=== PATIENT | male | born 2000 | race Caucasian/White ===

== ENCOUNTER → 2018-09-14 | Outpatient (CLI) | payer OTHER ==
--- NOTE | 2018-09-14 22:42 | MR ---
EXAMINATION TYPE: MR knee LT wo con DATE OF EXAM: 09/14/2018 COMPARISON: Outside left knee x-ray August 29, 2018. HISTORY: Lt knee pain, injured 1 year ago TECHNIQUE: Multiplanar, multisequence images of the knee is performed without IV contrast. FINDINGS: MEDIAL MENISCUS: Anterior horn is tear. Triangular shaped increased signal posterior horn of medial m eniscus does not definitively extend to articular surface. LATERAL MENISCUS: Anterior and posterior horns are intact without tear. CRUCIATE LIGAMENTS: The anterior and posterior cruciate ligaments are intact and unremarkable. COLLATERAL LIGAMENTS: The medial collateral ligament and lateral collateral ligament complex are inta ct and unremarkable. EXTENSOR MECHANISM: Visualized quadriceps and patellar tendons are intact. EFFUSION: No significant suprapatellar joint effusion. POPLITEAL CYST: No popliteal/cosby cyst. TRICOMPARTMENT SPACES: Tricompartment joint spaces are fairly well preserved. No significant spurring is seen. CARTILAGE: Tricompartment articular cartilage is maintained. No significant chondromalacia patella is present. BONE MARROW SIGNAL: Heterogeneous increased T2 signal anterior aspect distal medial femoral condyle a nd to lesser degree anterior medial tibial plateau are noted. OTHER: No additional significant abnormality is appreciated. IMPRESSION: 1. Possible intrasubstance tear posterior horn of medial meniscus, no full-thickness meniscal or liga mentous tear is seen. 2. Osseous contusion and/or bone marrow edema involving anterior aspect medial distal femoral condyle and to lesser degree medial aspect proximal tibial epiphysis.
== END | disposition home or self-care (01) ==
LOC: RADMRIMAIN 19:37
PROVIDERS: ATTEND Orthopaedic Surgery
DX: S70.12XA Contusion of left thigh, initial encounter (principal)

== ENCOUNTER → 2018-10-17 | Outpatient (CLI) | payer OTHER ==
[2018-10-17 14:32] LABS: Basophils # (A) 0.1 k/uL (0-0.2); Basophils % (A) 1 %; Eosinophils # (A) 0.5 k/uL (0-0.7); Eosinophils % (A) 6 %; HCT 52.2 % (39.0-53.0); HGB 16.8 gm/dL (13.0-17.5); Lymphocytes # (A) 2.1 k/uL (1.0-4.8); Lymphocytes % (A) 25 %; MCH 29.2 pg (25.0-35.0); MCHC 32.2 g/dL (31.0-37.0); MCV 90.7 fL (80.0-100.0); Mean Platelet Volume 6.4; Monocytes # (A) 0.5 k/uL (0-1.0); Monocytes % (A) 6 %; Neutrophils % (A) 60 %; Platelet Count 279 k/uL (150-450); RBC 5.75 m/uL (4.30-5.90); WBC 8.3 k/uL (4.0-11.0)
[2018-10-17 14:48] LABS: Potassium 4.8 mmol/L (3.5-5.1)
== END ==
LOC: LABPAT 14:07
PROVIDERS: ATTEND Orthopaedic Surgery
DX: Z01.812 Encounter for preprocedural laboratory examination (principal); M23.92 Unspecified internal derangement of left knee
CPT/HCPCS: 36415; 80051; 85025

== ENCOUNTER 2018-10-26 09:12 | Day surgery (SDC) | payer OTHER ==
--- NOTE | 2018-10-25 16:16 | HP ---
HISTORY AND PHYSICAL DATE OF SURGERY: 10/26/2018 Simon Medina is a 18-year-old patient seen with progressive left knee pain. Treatment options were discussed. He elected to proceed with arthroscopy. Consent was obtained. PAST MEDICAL HISTORY: Noncontributory. PAST SURGICAL HISTORY: Noncontributory. DAILY MEDICATIONS: None. ALLERGIES: NONE REPORTED. SOCIAL HISTORY: Denies current tobacco use. PHYSICAL EVALUATION OF THE LEFT KNEE: Range of motion is +3 to 130 degrees. Tenderness, medial joint line. Positive medial Daniela's. Ligaments stable. Hip rotation without pain. Distal neurovascular exam is intact. RADIOGRAPHS: Radiographs of the left knee revealed no osseous abnormality. An MRI of the left knee revealed an abnormal signal through the medial meniscus. IMPRESSION: Internal derangement of the left knee with medial meniscal tear. PLAN: Left knee arthroscopy with partial meniscectomy and debridement. MMODL / IJN: [id number] /
[~2018-10-26 09:12] MED LIST: HYDROmorphone 0.5 MG/0.5 ML SYRINGE IVP PRN; LACTATED RINGERS 1,000 ML IV SCH; LIDOCAINE 1% 20 ML VIAL (10MG/ML) FOR IV START INTRADERMA PRN; ONDANSETRON 4 MG/2 ML VIAL IVP ONE; ceFAZolin IN SWFI 2 GM/20 ML SYRINGE IVP ONE; fentaNYL (PF) 50 MCG/ML 2 ML AMP IV PRN
[2018-10-26] MEDS ORDERED: LIDOCAINE 1% INJ 10MG/ML (20 ML MDV) ONE (10:40)
[2018-10-26] MEDS ORDERED: PROPOFOL 10 MG/ML 20 ML VIAL IV ONE (10:40)
[2018-10-26] MEDS ORDERED: fentaNYL (PF) 50 MCG/ML 2 ML AMP ONE (10:40)
[2018-10-26] MEDS ORDERED: MIDAZOLAM 2 MG/2 ML VIAL ONE (10:40)
[2018-10-26] MEDS ORDERED: KETOROLAC 30 MG/ML 1 ML VIAL ONE (10:40)
[2018-10-26] MEDS ORDERED: BUPIVACAIN-EPI 0.5%-1:200,000 30 ML VIAL SQ ONE (11:02)
--- NOTE | 2018-10-26 11:25 | P.OP ---
Date of Procedure: 10/26/18 Preoperative Diagnosis: Internal derangement left knee Postoperative Diagnosis: 1. Tear lateral meniscus left knee 2. Reactive synovitis medial, lateral and suprapatellar compartments left knee Procedure(s) Performed: 1. Arthroscopic partial lateral meniscectomy left knee 2. Arthroscopic partial synovectomy medial, lateral and suprapatellar compartments left knee Anesthesia: STANLEYA, local Surgeon: Joe Calloway Estimated Blood Loss (ml): 5 Pathology: none sent Condition: stable Disposition: PACU Indications for Procedure: 18-year-old patient seen with progressive left knee pain. After having treatment options discussed, he elected to proceed with arthroscopy. Operative Findings: See description of procedure Description of Procedure: Patient was taken to the operative suite. Patient underwent a general anesth etic by the department of anesthesia. Patient was given preoperative antibiotics. The left lower extremity was placed in a well-padded arthroscopic leg santos. The left leg was prepped and draped in the normal sterile orthopedic fashion. A lateral parapatellar and suprapatellar incision was made. Trochars were inserted. Arthroscopy was initiated. Suprapatellar pouch revealed diffuse thick reactive synovitis. The patellofemoral joint appeared to articulate congruently. There was no chondromalacia present. The scope was guided into the medial gutter. No loose bodies or plica were identified. The scope was then guided into the medial compartment. A medial parapatellar incision was made. Trocar inserted followed by probe. Medial meniscus appeared stable. There was reactive synovitis anteriorly. There was no chondromalacia present. I performed a partial synovectomy decompressing reactive synovitis. There was good decompression of the synovitis. Scope and probe were then guided into the intercondylar notch. Cruciates were identified, probed and found to be stable. The scope and probe were then guided into lateral compartment. Was a radial tear involving the posterior lateral meniscus. There was no chondromalacia present. There was reactive synovitis anteriorly. I performed a partial lateral meniscectomy down to stable tissue. I performed a partial synovectomy. The residual meniscus was stable. There was good decompression of synovitis. The scope was in guided back into the suprapatellar compartment. I introduced a motorized shaver into the superpatellar compartment. I performed a partial synovectomy decompressing the reactive synovitis. The shaver was removed. I took one more look on the entire knee, no residual debris. Instruments were now removed from the joint. The joint was infiltrated with .25% Marcaine. Steri-Strips were applied to the portal sites. Sterile dressings were applied. The patient was placed into a ROLANDO hose. No tourniquet was utilized. The patient was awakened, transferred to a bed and taken to recovery stable satisfactory condition.
[2018-10-26 11:36] VITALS: TEMP 96.8
[2018-10-26 11:44] VITALS: RESP 16
[2018-10-26] MEDS ORDERED: LACTATED RINGERS 1,000 ML IV ONE (11:56)
[2018-10-26 12:08] VITALS: PULSE 69
[2018-10-26 12:36] VITALS: BP 105/69
== END 2018-10-26 12:46 | disposition home or self-care (01) ==
LOC: OR 09:12
PROVIDERS: ATTEND Orthopaedic Surgery
DX: S83.242A Other tear of medial meniscus, current injury, left knee, initial encounter (principal); M65.88 Other synovitis and tenosynovitis, other site; Z79.899 Other long term (current) drug therapy
CPT/HCPCS: 29881; 29876; J2250; J2405; J2001; J3010; J1885; J2704; J0690

== ENCOUNTER 2020-01-20 03:06 | Emergency (ER) | payer OTHER ==
[2020-01-20] MEDS ORDERED: predniSONE 20 MG TAB PO STA (03:27)
[2020-01-20] MEDS ORDERED: diphenhydrAMINE 50 MG CAP PO STA (03:28)
--- NOTE | 2020-01-20 04:02 | XR ---
EXAMINATION TYPE: XR soft tissue neck DATE OF EXAM: 01/20/2020 COMPARISON: NONE HISTORY: Dysphonia TECHNIQUE: 2 views FINDINGS: Epiglottis is within normal limits. There is some prominence of the adenoids measure 2 cm. Prevertebral soft tissues are within normal limits. Subglottic trachea appears normal. IMPRESSION: Hypertrophy of the adenoids. Otherwise negative exam. Normal epiglottis.
--- NOTE | 2020-01-20 04:29 | ED ---
ENT HPI - General Chief complaint: ENT Stated complaint: Sore throat Time Seen by Provider: 01/20/20 03:19 Source: patient Mode of arrival: ambulatory Limitations: no limitations - History of Present Illness Initial comments: Patient is 19-year-old man who presents to be evaluated for sore throat and a feeling of swelling in the back of his throat. The patient states that he had awakened just prior to coming in with these symptoms. He states that he had gone to sleep feeling normal area the patient's does acknowledge that he snores quite loudly. Patient denies fever or chills. No cough or dyspnea. MD complaint: sore throat, difficulty swallowing Onset/Timin -: hour(s) Location: throat Severity: moderate Quality: dull Consistency: constant Improves with: none Worsens with: swallowing - Related Data Home Medications Medication Instructions Recorded Confirmed Melatonin 10 mg PO HS PRN 10/20/18 10/20/18 Multivitamin [Multivitamins Adult 1 tab PO DAILY 10/20/18 10/20/18 Gummies] Previous Rx's Medication Instructions Recorded HYDROcodone/APAP 7.5-325MG [[place] 1 each PO Q6HR PRN #20 tab 10/26/18 7.5-325] predniSONE 60 mg PO DAILY #30 tab 01/20/20 Allergies Allergy/AdvReac Type Severity Reaction Status Date / Time No Known Allergies Allergy Verified 01/20/20 03:13 Review of Systems ROS Statement: Those systems with pertinent positive or pertinent negative responses have been documented in the HPI. ROS Other: All systems not noted in ROS Statement are negative. Constitutional: Denies: fever, chills ENT: Reports: throat pain. Denies: ear pain, dental pain, congestion Respiratory: Denies: cough, dyspnea, hemoptysis, stridor Cardiovascular: Denies: chest pain, palpitations Gastrointestinal: Denies: abdominal pain, vomiting Neurological: Denies: headache Past Medical History Past Medical History: No Reported History History of Any Multi-Drug Resistant Organisms: None Reported Past Surgical History: Orthopedic Surgery Past Psychological History: No Psychological Hx Reported Smoking Status: Never smoker Past Alcohol Use History: None Reported Past Drug Use History: None Reported General Exam Limitations: no limitations General appearance: alert, in no apparent distress Head exam: Present: atraumatic, normocephalic Eye exam: Present: normal appearance. Absent: scleral icterus, conjunctival injection ENT exam: Present: other (There is mild edema of the uvula. There is no lateral deviation. No peritonsillar erythema or edema. No exudate.) Neck exam: Present: normal inspection, full ROM. Absent: tenderness, meningismus, lymphadenopathy Respiratory exam: Present: normal lung sounds bilaterally. Absent: respiratory distress, wheezes, rales, rhonchi, stridor Cardiovascular Exam: Present: regular rate, normal rhythm, normal heart sounds. Absent: systolic murmur, diastolic murmur, rubs, gallop Neurological exam: Present: alert Skin exam: Present: warm, dry, intact, normal color. Absent: rash Course Vital Signs 01/20/20 03:09 Temperature 98 F Pulse Rate 71 Respiratory 18 Rate Blood Pressure 156/93 O2 Sat by Pulse 100 Oximetry Medical Decision Making - Lab Data Lab Results 01/20/20 Range/Units 03:34 Group A Strep Rapid Negative (Negative) Disposition Clinical Impression: Uvulitis, Adenoid hypertrophy Disposition: HOME SELF-CARE Condition: Good Instructions (If sedation given, give patient instructions): Uvulitis (ED) Prescriptions: predniSONE 60 mg PO DAILY #30 tab Is patient prescribed a controlled substance at d/c from ED?: No Referrals: None,Stated [Primary Care Provider] - 1-2 days Telly Stacy DO [Doctor of Osteopathic Medicine] - 1-2 days
[2020-01-20] MEDS ORDERED: LIDOCAINE VISCOUS 2% 15 ML CUP MUCOUS MEM STA (04:34)
[2020-01-20 05:32] VITALS: BP 146/99; PULSE 63; RESP 16; TEMP 98.5
== END 2020-01-20 05:38 | disposition home or self-care (01) ==
LOC: EC 03:06
DX: K12.2 Cellulitis and abscess of mouth (principal); J35.2 Hypertrophy of adenoids; J02.9 Acute pharyngitis, unspecified
CPT/HCPCS: 87081; 87430; 70360; 99283; J7512

== ENCOUNTER 2023-12-08 17:19 | Emergency (ER) | payer OTHER ==
[2023-12-08 17:59] LABS: Basophils # (A) 0.1 k/uL (0-0.2); Basophils % (A) 1 %; Eosinophils # (A) 0.4 k/uL (0-0.7); Eosinophils % (A) 5 %; HGB 17.7 gm/dL (13.0-17.5); Lymphocytes # (A) 2.4 k/uL (1.0-4.8); Lymphocytes % (A) 24 %; MCH 29.8 pg (25.0-35.0); MCHC 32.8 g/dL (31.0-37.0); Mean Platelet Volume 7.4; Monocytes # (A) 0.6 k/uL (0-1.0); Monocytes % (A) 6 %; Neutrophils # (A) 6.2 k/uL (1.3-7.7); Neutrophils % (A) 63 %; Platelet Count 320 k/uL (150-450); RBC 5.93 m/uL (4.30-5.90); RDW 13.3 % (11.5-15.5); WBC 9.8 k/uL (3.8-10.6)
--- NOTE | 2023-12-08 18:09 | XR ---
EXAMINATION TYPE: XR chest 2V DATE OF EXAM: 12/08/2023 COMPARISON: 09/09/2015 HISTORY: Chest pain TECHNIQUE: Frontal and lateral views of the chest are obtained. FINDINGS: There is no focal air space opacity, pleural effusion, or pneumothorax seen. The cardiac silhouette size is within normal limits. The osseous structures are intact. IMPRESSION: No acute cardiopulmonary process.
[2023-12-08 18:13] LABS: INR 0.9 (<1.2); Partial Thromboplastin Time 22.8 sec (22.0-30.0); Prothrombin Time 10.1 sec (10.0-12.5)
--- NOTE | 2023-12-08 18:13 | ED ---
Chest Pain HPI - General Source: patient, RN notes reviewed Mode of arrival: ambulatory Limitations: no limitations <Agnes Lagunas - Last Filed: 12/08/23 18:11> <Olivia Kat - Last Filed: 12/08/23 20:23> - General Chief Complaint: Chest Pain Stated Complaint: L shoulder pain, chest pain, hypertension Time Seen by Provider: 12/08/23 17:40 - History of Present Illness Initial Comments: Quick noteis a 23-year-old male who presents the emergency department via EMS from urgent care for chief complaint of chest pain last 4 to 5 days is reproducible on palpation. Patient is also been experiencing left shoulder back pain over the last 2 weeks. Patient was instructed that he had an elevated blood pressure at urgent care where he was sent for further evaluation. Denies use of antihypertensives (Agnes Lagunas) 23-year-old male presenting with chief complaint of chest pain. Patient has had an aching pain to the left side of the chest ongoing for the last 2 weeks. Over the last 4 to 5 days pain has been radiating into his left shoulder as well. He was seen at urgent care today, he was sent here for further work-up and management of elevated BP. Patient states that in certain positions he can provoke a sharp pain to the left side of the chest. Also states that the pain is made worse with deep breathing. Denies any injury or trauma. No numbness tingling or weakness. No shortness of breath. Pain is not worse upon exertion. No lower extremity swelling, recent surgery, recent long travel. No cough, congestion, sore throat, fever, chills. No headaches or blurred vision. (Olivia Kat) - Related Data Home Medications Medication Instructions Recorded Confirmed Melatonin [Melatonin ER] 10 mg PO HS PRN 10/20/18 10/20/18 Multivitamin [Multivitamins Adult 1 tab PO DAILY 10/20/18 10/20/18 Gummies] Previous Rx's Medication Instructions Recorded HYDROcodone/APAP 7.5-325MG [[place] 1 each PO Q6HR PRN #20 tab 10/26/18 7.5-325] predniSONE 60 mg PO DAILY #30 tab 01/20/20 Allergies Allergy/AdvReac Type Severity Reaction Status Date / Time No Known Allergies Allergy Verified 01/20/20 03:13 Review of Systems ROS Other: All systems not noted in ROS Statement are negative. <Agnes Lagunas - Last Filed: 12/08/23 18:11> ROS Other: All systems not noted in ROS Statement are negative. <NorthJoejose daniel - Last Filed: 12/08/23 20:23> ROS Statement: Those systems with pertinent positive or pertinent negative responses have been documented in the HPI. EKG Findings - EKG Comments: EKG Findings:: Sinus rhythm ventricular rate 74. W[place] interval 123. QRS 97. QT 369. QTc 396. Normal R wave progression. <NorthJoejose daniel - Last Filed: 12/08/23 20:23> Past Medical History Past Medical History: No Reported History History of Any Multi-Drug Resistant Organisms: None Reported Past Surgical History: Orthopedic Surgery Past Psychological History: No Psychological Hx Reported Past Alcohol Use History: None Reported Past Drug Use History: None Reported <Tamiko Lagunasoe - Last Filed: 12/08/23 18:11> General Exam Limitations: no limitations <Agnes Lagunas - Last Filed: 12/08/23 18:11> Limitations: no limitations General appearance: alert, in no apparent distress Head exam: Present: atraumatic, normocephalic Eye exam: Present: normal appearance, EOMI Neck exam: Present: normal inspection. Absent: meningismus Respiratory exam: Present: normal lung sounds bilaterally, chest wall tenderness. Absent: respiratory distress, wheezes, rales, rhonchi, stridor Cardiovascular Exam: Present: regular rate, normal rhythm, normal heart sounds. Absent: systolic murmur, diastolic murmur, rubs, gallop, clicks Neurological exam: Present: alert, oriented X3 Psychiatric exam: Present: normal affect, normal mood Skin exam: Present: warm, dry <KatJoejose daniel - Last Filed: 12/08/23 20:23> - General Exam Comments Initial Comments: Visual Physical Exam Vital signs reviewed General: Well-appearing, nontoxic, no acute distress. Head: Normocephalic, atraumatic Eyes: PERRLA, EOMI ENT: Airway patent Chest: Nonlabored breathing Skin: No visual rash, normal skin tone Neuro: Alert and oriented 3 Musculoskeletal: No gross abnormalities (Stieler,Agnes) Course Vital Signs 12/08/23 12/08/23 17:33 19:30 Temperature 98 F 98.1 F Pulse Rate 82 74 Respiratory 20 16 Rate Blood Pressure 192/113 147/92 O2 Sat by Pulse 99 98 Oximetry Chest Pain MDM <Agnes Lagunas - Last Filed: 12/08/23 18:11> <NorthOlivia - Last Filed: 12/08/23 20:23> - MDM I completed the quick note portion of this chart signed Agnes Lagunas PA-C (Agnes Lagunas) Was pt. sent in by a medical professional or institution (ERICA Diehl, CLEARANCE REPRESENTATIVE, urgent care, hospital, or retirement...) When possible be specific @ -Sent from urgent care Did you speak to anyone other than the patient for history (EMS, parent, family, police, friend...)? What history was obtained from this source @ -No Did you review nursing and triage notes (agree or disagree)? Why? @ -I reviewed and agree with nursing and triage notes Were old charts reviewed (outside hosp., previous admission, EMS record, old EKG, old radiological studies, urgent care reports/EKG's, retirement records)? Report findings @ -No old charts were reviewed Differential Diagnosis (chest pain, altered mental status, abdominal pain women, abdominal pain men, vaginal bleeding, weakness, fever, dyspnea, syncope, headache, dizziness, GI bleed, back pain, seizure, CVA, palpatations, mental health, musculoskeletal)? @ -[facility] Differential Chest Pain: Stable Angina, Unstable Angina, STEMI, NSTEMI Aortic Dissection, Pneumothorax, Musculoskeletal, Esophageal Spasm GERD, Cholecystitis, Pancreatitis, Zoster This is not meant to be an all-inclusive list. EKG interpreted by me (3pts min.). @ -As above X-rays interpreted by me (1pt min.). @ -Chest x-ray shows no acute cardiopulmonary process CT interpreted by me (1pt min.). @ -None done U/S interpreted by me (1pt. min.). @ -None done What testing was considered but not performed or refused? (CT, X-rays, U/S, labs)? Why? @ -None What meds were considered but not given or refused? Why? @ -None Did you discuss the management of the patient with other professionals (professionals i.e. , PA, CLEARANCE REPRESENTATIVE, lab, RT, psych nurse, social sciences department chair, sql data architect, teacher, chief investment officer, case packer and sealer)? Give summary @ -No Was smoking cessation discussed for >3mins.? @ -No Was critical care preformed (if so, how long)? @ -No Were there social determinants of health that impacted care today? How? (Homelessness, low income, unemployed, alcoholism, drug addiction, transportation, low edu. Level, literacy, decrease access to med. care, detention, rehab)? @ -No Was there de-escalation of care discussed even if they declined (Discuss DNR or withdrawal of care, Hospice)? DNR status @ -No What co-morbidities impacted this encounter? (DM, HTN, Smoking, COPD, CAD, Cancer, CVA, ARF, Chemo, Hep., AIDS, mental health diagnosis, sleep apnea, morbid obesity)? @ -None Was patient admitted / discharged? Hospital course, mention meds given and route, prescriptions, significant lab abnormalities, going to OR and other pertinent info. @ -23-year-old male presenting with chief complaint of chest pain. Sent from urgent care. He was found to have elevated blood pressure urgent care upon arrival to our facility. Workup is initiated by triage. No leukocytosis. Negative troponin. Chest x-ray shows no acute process and EKG shows sinus rhythm with no ST deviation. Patient is later placed in a room and evaluated by myself. Pain is pleuritic in nature but is also reproducible upon palpation. Heart and lungs are clear to auscultation. Patient showing no acute signs of distress. His vital signs have significantly improved. D-dimer is 0.21. Patient is given Toradol and Decadron for suspected costochondral chest pain. Patient is educated on today's findings. He is strongly encouraged to follow-up with his PCP regarding today's symptoms and blood pressure findings. Discharged home. Follow-up with PCP. Report back to ER with any new or worsening symptoms. Discussed return parameters and answered all questions. Patient conveyed verbal understanding and agreed to the plan. I discussed this case in detail with my attending Dr. Corado Undiagnosed new problem with uncertain prognosis? @ -No Drug Therapy requiring intensive monitoring for toxicity (Heparin, Nitro, Insulin, Cardizem)? @ -No Were any procedures done? @ -No Diagnosis/symptom? @ -Atypical chest pain Acute, or Chronic, or Acute on Chronic? @ -Acute Uncomplicated (without systemic symptoms) or Complicated (systemic symptoms)? @ -Uncomplicated Side effects of treatment? @ -No Exacerbation, Progression, or Severe Exacerbation? @ -No Poses a threat to life or bodily function? How? (Chest pain, [place], [place], pneumonia, PE, COPD, DKA, ARF, appy, cholecystitis, CVA, Diverticulitis, Homicidal, Suicidal, threat to staff... and all critical care pts) @ -Low likelihood (Olivia Kat) Disposition <Agnes Lagunas - Last Filed: 12/08/23 18:11> Is patient prescribed a controlled substance at d/c from ED?: No Time of Disposition: 20:11 <Olivia Kat - Last Filed: 12/08/23 20:23> Clinical Impression: Atypical chest pain, Shoulder pain Disposition: HOME SELF-CARE Condition: Fair Instructions (If sedation given, give patient instructions): Chest Pain (ED) Additional Instructions: Follow-up with PCP. Report back to ER with any new or worsening symptoms. Take Motrin and Tylenol as needed for pain control. Referrals: Demetria Faye MD [Primary Care Provider] - 1-2 days
[2023-12-08 18:16] LABS: ALT 54 U/L (4-49); AST 32 U/L (17-59); African American GFR (CKD) >90 (>60 ml/min/1.73 sqM); Albumin 4.7 g/dL (3.5-5.0); Alkaline Phosphatase 80 U/L (38-126); Anion Gap 7 mmol/L; Blood Urea Nitrogen 12 mg/dL (9-20); Calcium 9.8 mg/dL (8.4-10.2); Carbon Dioxide 28 mmol/L (22-30); Chloride 104 mmol/L (98-107); Glucose 98 mg/dL (74-99); Magnesium 1.8 mg/dL (1.6-2.3); Non-African American GFR(CKD) >90 (>60 ml/min/1.73 sqM); Potassium 4.8 mmol/L (3.5-5.1); Sodium 139 mmol/L (137-145); Total Bilirubin 0.3 mg/dL (0.2-1.3); Total Protein 7.9 g/dL (6.3-8.2)
[2023-12-08] MEDS: KETOROLAC 15 MG/ML 1 ML VIAL IVP STA (19:54)
[2023-12-08] MEDS: DEXAMETHASONE SOD PHOSPHATE 10 MG/ML 1 ML VIAL IV STA (19:55)
[2023-12-08 21:05] VITALS: BP 145/98; PULSE 97; RESP 18; TEMP 98
== END 2023-12-08 20:48 | disposition home or self-care (01) ==
LOC: EC 17:19
DX: R07.89 Other chest pain (principal); M25.512 Pain in left shoulder
CPT/HCPCS: 36415; 93005; 85379; 80053; 83735; 84484; 85025; 85610; 85730; 71046; 99285; 96374; 96375; J1100; J1885

== ENCOUNTER → 2024-02-01 | Outpatient (CLI) | payer OTHER ==
--- NOTE | 2024-02-19 15:39 | CT ---
EXAMINATION TYPE: CT angio abdomen DATE OF EXAM: 02/01/2024 COMPARISON: NONE HISTORY: 23-year-old male I10, hypertension US showed elevated velocity of right kidney TECHNIQUE: CT angiography of the abdomen before and after administration of 80 ml Isovue-370 IV contr ast. Coronal and sagittal reconstructions performed. 3-D reconstructions generated on a dedicated in dependent workstation. CT DLP: 1571 mGycm Automated exposure control for dose reduction was used. FINDINGS: The heart heart is normal size without pericardial effusion. Lung bases clear without pleural effusio n. Liver enlarged at 19.8 cm, possibly due to the presence of a Uday's lobe. Gallbladder, adrenal glan ds, kidneys, spleen, and pancreas within normal limits. Tiny fatty umbilical hernia. No dilated small bowel, free fluid, or free air. No mesenteric or retroperitoneal lymphadenopathy. Scattered mild stool. Minimal diverticular change noted within the proximal sigmoid colon. Normal sterling endix. No pericolonic inflammatory change. Pelvis not imaged. The celiac axis and SMA are patent. The carvajal bilateral renal arteries are widely patent. There is early branching of the right renal artery noted. No abnormal vessel configuration or stenosis is seen. HENRY is patent. Bones: No osseous destructive process. IMPRESSION: 1. CARVAJAL BILATERAL RENAL ARTERIES WITHOUT EVIDENCE FOR RENAL ARTERY STENOSIS. NO SPECIFIC ABNORMA LITY SEEN. 2. MINIMAL PROXIMAL SIGMOID DIVERTICULOSIS AND TINY FATTY UMBILICAL HERNIA.
== END | disposition home or self-care (01) ==
LOC: RADCTMAIN 16:55
PROVIDERS: ATTEND Family Medicine
DX: I10 Essential (primary) hypertension (principal); K42.9 Umbilical hernia without obstruction or gangrene; K57.30 Diverticulosis of large intestine without perforation or abscess without bleeding
CPT/HCPCS: 74175; Q9967

== ENCOUNTER → 2024-02-27 | Outpatient (CLI) | payer OTHER ==
[2024-02-27 14:55] VITALS: BP 122/78; PULSE 59; RESP 18; TEMP 98.3
--- NOTE | 2024-02-27 16:19 | P.SLEEP ---
History of Present Illness DATE: 02/27/2024 CONSULTATION/NEW PATIENT EVALUATION HISTORY OF PRESENT ILLNESS/SLEEP-WAKE EVALUATION: 23-year-old gentleman had b een evaluated in the sleep center for possible obstructive sleep apnea hypopnea syndrome. SLEEP SCHEDULE: Usually sleep schedule from 121 AM until 58 AM. FALLING ASLEEP: Patient has difficulties with falling asleep, has TV set in bedroom. DURING SLEEP: Patient sleeps on the side position with snoring and awakenings from sleep up to 5 times with grinding teeth, sleep talking, palpitations. Qu estionable positive history of hypnogogical hallucinations, no sleep paralysis, or cataplexy. DURING THE DAY/WAKE STATE: In the morning patient wake up tired, has episodes of anxiety. [place] sleepiness scale is 8. Patient does not take naps. PAST MEDICAL HISTORY: Hypertension. PAST SURGICAL HISTORY: Evola ectomy, left knee surgery. MEDICATIONS: Please see below. SOCIAL HISTORY: Please see below. FAMILY HISTORY: Hypertension, heart problems, cancer, mental illness. REVIEW OF SYSTEMS: Snoring, multiple awakenings from sleep. No fevers. No double vision. No recent chest pain. No shortness of breath. No abdominal pain. No bleeding episodes. No blood in urine. No seizure episodes. PHYSICAL EXAMINATION: GENERAL: A pleasant patient without any distress. VITAL SIGNS: Please see below, weight 233.8 pounds, BMI 36.8. HEENT: PERRLA, EOMI. Evaluation of oropharynx showed tongue protrudes midline, low position of soft palate Mallampati 4. NECK: Supple. No JVD. Thyroid is not palpable. 17 inches in circumference. LUNGS: Clear to percussion and to auscultation. Good air exchange. No wheezing or rhonchi. HEART: S1, S2 regular. No murmurs, gallops or rubs. ABDOMEN: Soft and nontender. Bowel sounds are present. No organomegaly appreciated. EXTREMITIES: No clubbing or cyanosis. INSURANCE SALES SPECIALIST: Awake, alert, and oriented x3. Cranial nerves 2 to 7 intact. There is no fasciculation or atrophy noted. No focal deficits observed. ASSESSMENT: 1. Snoring, multiple awakenings from sleep, low position of soft palate Mallampati 4, wide neck 17 inches in circumference. Obstructive sleep apnea hypopnea syndrome. 2. Mild obesity BMI 36.8. 3. Hypertension. 4. Sleep talking. 5 status post uvulectomy. 6 . Status post left knee surgery. 7. History of sleepwalking in childhood. PLAN: 1. Polysomnography for evaluation of patient's breathing during sleep. 2. CPAP/BiPAP titration if sleep study confirms obstructive sleep apnea- hypopnea syndrome. 3. Preferable position during sleep on the side. 4. No driving if patient feels any sleepiness. Patient is aware of civil and criminal liability for unsafe driving. 5. Sleep hygiene with regular sleep time for at least 7.5-8 hours. 6. Watching and losing weight. Thank you very much for referring this patient for consultation. Sincerely, Gustavo Landon MD, PhD, FAASM. Diplomat of [place] [employer], Sleep Medicine Board by [place] [employer] [place] [employer] [facility] [place] cc:Demetria Faye MD Past Medical History Past Medical History: Hyperlipidemia, Hypertension History of Any Multi-Drug Resistant Organisms: None Reported Past Surgical History: Orthopedic Surgery Additional Past Surgical History / Comment(s): L knee arthroscopy Past Psychological History: Anxiety Smoking Status: Never smoker Past Alcohol Use History: None Reported Past Drug Use History: None Reported - Past Family History Mother Family Medical History: Asthma, Congestive Heart Failure (CHF), CVA/TIA, Hyperlipidemia, Hypertension Additional Family Medical History / Comment(s): heart problems, Father Family Medical History: Cancer Additional Family Medical History / Comment(s): Lung CA - small cell Medications and Allergies Home Medications Medication Instructions Recorded Confirmed Type Melatonin [Melatonin ER] 10 mg PO HS PRN 10/20/18 10/20/18 History Multivitamin [Multivitamins Adult 1 tab PO DAILY 10/20/18 10/20/18 History Gummies] HYDROcodone/APAP 7.5-325MG [[place] 1 each PO Q6HR PRN #20 tab 10/26/18 Rx 7.5-325] predniSONE 60 mg PO DAILY #30 tab 01/20/20 Rx Allergies Allergy/AdvReac Type Severity Reaction Status Date / Time No Known Allergies Allergy Verified 01/20/20 03:13 Physical Exam Vitals: Vital Signs Temp Pulse Resp BP Pulse Ox 02/27/24 14:54 98.3 F 59 L 18 122/78 98 Intake and Output 02/27/24 02/27/24 02/27/24 06:59 14:59 22:59 Other: Weight 105.914 kg Sleep Note - Sleep Data ESS Total: 8 - Sleep Note Sleep Note: Temperature: 98.3 F Pulse Rate: 59 Respiratory Rate: 18 Blood Pressure: 122/78 SpO2: 98 Height: 5 ft 6.7 in Weight: 105.914 kg BMI: Neck Circumference: 17
== END ==
LOC: 3 N SLEEP 14:10
PROVIDERS: ATTEND Internal Medicine
DX: G47.33 Obstructive sleep apnea (adult) (pediatric) (principal); E66.9 Obesity, unspecified; I10 Essential (primary) hypertension; Z87.39 Personal history of other diseases of the musculoskeletal system and connective tissue; Z98.890 Other specified postprocedural states; Z90.89 Acquired absence of other organs; Z68.36 Body mass index [BMI] 36.0-36.9, adult
CPT/HCPCS: 99211